=== PATIENT | female | born 1970 | race Caucasian/White ===

== ENCOUNTER 2017-03-12 12:14 | Emergency (ER) | payer MEDICAID ==
[~2017-03-12] VITALS: Ht 149.9 cm; Wt 72.7 kg
[2017-03-12 12:27] VITALS: BP 136/83; PULSE 81; RESP 18; O2SAT 99
--- NOTE | 2017-03-12 14:03 | ED.REPORT ---
HPI-Extremity Problem Lower Date of Service Mar 12, 2017 ED Provider: Corey Stewart PA-C to 46-year-old female. Emergency department with chief complaint of bilateral leg pain. Patient reports a one-month history of pain shooting "up the backs of my legs." Reports the pain is debilitating to the point where she is unable to step up onto a curb. She reports several falls a day. Patient reports being evaluated at [facility] as well as being followed at the [facility], "but they are not helping me." She can recall no injury. Denies back pain, abdominal pain, vomiting, hematochezia, hematuria, dysuria. She reports episodes of fecal incontinence, which she describes as occurring after periods of intense pain. Denies numbness between her legs, urinary retention. Denies fever, DM, HIV, organ transplant, immunosuppression, recent surgery, recent infection, history of back surgery, surgical implants and IV drug use. History of severe psoriasis. She reports treatment with prednisone was helpful, which she received last week. Denies using other medications. Nursing Notes Stated Complaint: BILATERAL LEG PAIN/FEET NUMB Chief Complaint: Extremity Trauma Nursing Notes Reviewed: Yes Allergies: Coded Allergies: codeine (Verified Allergy, Unknown, 03/12/17) Scheduled PRN Hydrocodone-Acetaminophen 5-325 mg (Hydrocodone-Acetaminophen 5-325 mg) 1 Each Tablet 1-2 TABLET PO QID PRN PRN For Pain General Time Seen by MD: 13:41 Chief Complaint Other (bilateral leg pain) Past Medical History Past Medical History Psoriasis Denies: Diabetes mellitus, HIV Review of Systems Review of Systems Note: Negative unless stated otherwise in history of present illness Physical Exam General: Well appearing, well developed, well nourished, no acute distress. Head: Atraumatic, normocephalic. Eyes: No scleral icterus or injection. No discharge. Vision grossly intact. ENT: Voice clear, hearing grossly intact. Respiratory: No respiratory distress, no increased work of breathing. Speaks in complete sentences. Skin: Warm and dry. Rectal exam: Normal tone, negative masses Back: Normal to inspection, nontender. Neurological: Patient has difficulty standing, and strength examination is extremely limited. It is unclear if this is due to pain or limited strength. sensation is intact in distal extremities. Patellar and Achilles deep tendon reflexes 2+ and symmetrical. Psychological: alert and oriented. Speech appropriate, linear and logical. Behavior somewhat dramatic, tearful. Initial Vital Signs Vital Signs (First) Date Time Temp Pulse Resp B/P Pulse Ox O2 Delivery O2 Flow Rate FiO2 03/12/17 12:27 37.0 81 18 136/83 99 Room Air Normal Interpretation & Diagnostics Interpretation & Diagnostics: PROCEDURE: MRI LUMBAR SPINE WITH AND WITHOUT CONTRAST ([id number]) INDICATIONS: leg pain, weakness IMPRESSION: 1. Early degenerative changes most prominent at L4-5, demonstrating disc bulge with severe spinal stenosis. In addition, there is severe right foraminal narrowing where it mild nerve reflecting. Spinal stenosis is present secondary to disc bulge with contributing effect of facet and ligamentum flavum arthropathy. Foraminal narrowing is present secondary to facet arthropathy with contributing effect of anterolisthesis. Re-Eval/Medical Decision Med Decision/Clinical Course 38-year-old female with a one-month history of bilateral shooting pains, numbness in her feet complaining of increasing weakness, pain. Reports urinary and fecal incontinence, possibly associated with pain. Denies saddle anesthesia , urinary retention. Denies history of back surgery, IV drug use, fever. Physical examination reveals normal reflexes, sensation but limited strength and mobility. It is unclear if this is due to pain, lack of effort. Patient is unable to stand without severe pain, cannot straight leg raise, strength is significantly reduced in her extremities. Exam is normal. Found this a challenging physical, this is difficult to determine how much is participation based on how much is genuine. I discussed the case with Dr. Taylor, who met with and examined the patient. He suggests MRI lumbar spine with and without contrast. This shows severe L4 5 stenosis, is reassuring against abscess, hematoma, fracture. Discussed findings with spine surgeon, who reviewed MRI personally and feels that stenosis does not rise to the level of cauda equina syndrome and this is nonemergent condition. He does feel she will need surgery. Advises follow-up in office, pain medication. I discussed these reveals a patient who was glad to have a diagnosis and felt heard. Provided with primary care follow-up instructions, spine surgery follow-up instructions and emergency return precautions. Provided a supply of [place]. The patient verbalizes understanding of and consent to the plan. Consultation #1: Call Returned at: 16:33 Note: Discussed the case with a provider at [facility], the PCP listed on her ANGELA report. She reports that the patient has not been seen there since June 2016. Consultation #2: Referral / Consult Name: Horace Muñoz MD Call Returned at: 18:17 Note: Discussed the case with Dr. Muñoz, who reviewed the imaging. He does not feel that the stenosis rises to the level of cauda equina syndrome. He does not believe this is an emergent condition, but does believe she will need spine surgery. He recommends short-term pain medication with ibuprofen and hydrocodone/APAP. Patient is invited to contact his office tomorrow to arrange to be seen. He also advises the patient should contact her primary care provider to arrange ongoing pain medication prior to surgery. Discharge & Departure Impression: Primary Impression: Spinal stenosis at L4-L5 level Additional Impression: Leg pain, bilateral Disposition: Home Discharge Condition All VS Reviewed: Yes Condition: Stable Patient Instructions: Lumbar Spinal Stenosis (ED) Additional Instructions: Evaluation for leg pain in the emergency department includes interview, physical examination, MRI and consultation with the spine surgeon. So reassuring that this is unlikely to be an immediately dangerous condition, however Dr. Muñoz does believe that you have severe spinal stenosis which will likely require surgery. I will provide you with a referral to see Dr. Muñoz. Please contact his office tomorrow to arrange to be seen. I also suggest that you follow up with your primary care provider tomorrow to arrange ongoing pain medication. We will not refill your pain medications here in the emergency department. The pain is best treated with 600 mg of ibuprofen (Advil, Motrin) every 6 hours. I have written a prescription for a small amount of hydrocodone/ acetaminophen 5/325 mg which can be added to the ibuprofen to treat more severe pain. Do not drink alcohol or operate a vehicle within 4 hours of taking this medication. Return to the emergency department with any new or worsening symptoms including numbness between her legs, loss of bowel function or an inability to urinate Referrals: Awa Salgado MD (PCP) Horace Muñoz MD OTHER,PHYSICIAN [facility]. EDSupervising Provider for APC: Froilan Taylor MD Attending Statement Attending attestation: I saw this patient in conjunction with Corey Stewart PA-C. I agree with the workup, evaluation, treatment and disposition. Froilan Taylor MD copies to: Awa Salgado MD; Horace Muñoz MD, Seth PA-C Mar 12, 2017 14:03 Froilan Taylor MD Mar 13, 2017 17:44
[2017-03-12 16:56] VITALS: BP 115/64; PULSE 72; O2SAT 99
--- NOTE | 2017-03-12 16:59 | DRSVH ---
PROCEDURE: MRI LUMBAR SPINE WITH AND WITHOUT CONTRAST ([id number]) INDICATIONS: leg pain, weakness TECHNIQUE: Noncontrast sagittal T1 spin echo and T2 fast spin echo, sagittal STIR, axial T1 and T2 fast spin ech o through the lumbar spine. In cases with scoliosis, additional coronal T2 fast spin echo may be per formed. After the administration of contrast, sagittal and axial T1 spin echo with fat saturation th rough the lumbar spine. COMPARISON: None. FINDINGS: Image quality: Excellent. Alignment and curvature: There is trace anterolisthesis of L4 on L5, trace retrolisthesis of L3 on L4 . Marrow: Marrow is of normal overall signal. No acute vertebral body compression fractures. No susp icious marrow enhancement. Spinal cord: Conus medullaris terminates at the L1 level. Visualized spinal cord demonstrates nuno l signal, without suspicious enhancement. Paraspinous soft tissues: No paravertebral masses or abnormal enhancement. Moderate desiccation is present from L3-4 through L5-S1 L1-L2: No disc bulge, spinal stenosis or foraminal narrowing. L2-L3: Minimal disc bulge without spinal stenosis or foraminal narrowing. Mild facet and ligamentum f lavum hypertrophy. L3-L4: Mild disc bulge with minimal spinal stenosis. Minimal to mild bilateral foraminal narrowing wi th facet and ligament flavum hypertrophy. Mild epidural lipomatosis. L4-L5: Prominent broad-based disc bulge with what appears to be a left foraminal component. Motion is present on axial images at this level, somewhat limiting evaluation. There is severe spinal stenosis with severe right and mild to moderate left foraminal narrowing. Mild flattening is noted on the rig ht. Facets and ligamenta flava hypertrophy are present. Fluid are present within the facet joints justo aterally most consistent with degenerative inflammatory change. L5-S1: Mild disc bulge without spinal stenosis. Small right lateral/foraminal component is present. T here is severe right and moderate left foraminal narrowing with flattening on the right. Facet hypert rophy is present. IMPRESSION: 1. Early degenerative changes most prominent at L4-5, demonstrating disc bulge with severe spinal alonzo nosis. In addition, there is severe right foraminal narrowing where it mild nerve reflecting. Spinal stenosis is present secondary to disc bulge with contributing effect of facet and ligamentum flavum a rthropathy. Foraminal narrowing is present secondary to facet arthropathy with contributing effect of anterolisthesis. Dictated by: Rosanna Landeros M.D. on 03/12/2017 at 16:52 Approved by: Rosanna Landeros M.D. on 03/12/2017 at 16:56
[2017-03-12] MEDS ORDERED: HYDR-4003 PO (19:29)
== END 2017-03-12 19:27 | disposition home or self-care (01) ==
LOC: SED 12:14
DX: M48.06 Spinal stenosis, lumbar region (principal); M79.604 Pain in right leg; M79.605 Pain in left leg; R29.6 Repeated falls; R15.9 Full incontinence of feces; Z88.5 Allergy status to narcotic agent
CPT/HCPCS: 72158; 96372; 99284; A9585; J1885

== ENCOUNTER 2017-04-12 11:38 | Emergency (ER) | payer MEDICAID ==
[~2017-04-12] VITALS: Ht 149.9 cm; Wt 75.0 kg
[~2017-04-12 11:38] MED LIST: HYDR-4003 PO
[2017-04-12 12:06] VITALS: BP 118/62; PULSE 72; RESP 14; O2SAT 99
--- NOTE | 2017-04-12 12:57 | ED.REPORT ---
HPI-Back Pain 40 and Over Date of Service Apr 12, 2017 ED Provider: Ryanne Bo History of Present Illness: right lower leg swelling, started on Saturday. has done elevation, given a vaishnavi wrap last time. alphonse is primary care. using dovanex for the psorasis complains of the pain. when asked what she uses for the pain, patient states nothing. When asked about using suboxone, patient states she has taken her doses today and is still in pain. Does not report radiating pain. Pain is point tender at medial malleolus. No swelling noted. patient reports the pain has been ongoing and she does not get enough pain medications Nursing Notes Chief Complaint: Extremity Trauma Nursing Notes Reviewed: Yes (using dovanex for psorasis) Allergies: Coded Allergies: codeine (Verified Allergy, Unknown, 03/12/17) Scheduled PRN Hydrocodone-Acetaminophen 5-325 mg (Hydrocodone-Acetaminophen 5-325 mg) 1 Each Tablet 1-2 TABLET PO QID PRN PRN For Pain General Time Seen by MD: 12:49 Chief Complaint Other (right leg pain) Hx Obtained From: Patient Sudden in Onset?: No Past Medical History Past Medical History Notes: sees drew for ARTHRITIS Past Medical History Psoriasis Smoking History Current Every Day Smoker (1 cig a day for 10 years) Social History Alcohol Use: Denies alcohol use Drug Use: THC Review of Systems Basic Review of Systems Eyes: Vision NL, No discharge Skin: No bruising, No rash, No itch Psychiatric: Normal thought content Physical Exam Initial Vital Signs Vital Signs (First) Date Time Temp Pulse Resp B/P Pulse Ox O2 Delivery O2 Flow Rate FiO2 04/12/17 12:06 36.6 72 14 118/62 99 Room Air Initial VS: Reviewed, Vital signs normal Head / Eyes: Atraumatic, Normocephalic, PERRL ENT: Mucous membranes moist, Conjunctiva normal, No scleral icterus Neck: Supple, Non-tender, Full range of motion Lymphatic: No lymphadenopathy Extremities: Vascular intact, Neuro intact, No swelling, No tenderness Skin: Warm, Dry, No cyanosis Psychiatric: Mood/affect normal, Behavior normal, Normal thought content General/Constitutional: Awake, Alert, No acute distress, Well appearing, Well developed, Well hydrated, Well nourished, Cooperative, Not toxic appearing Respiratory / Chest: Atraumatic, Breath sounds NL, Breath sounds = bilat, No respiratory distress Cardiovascular: Heart rate NL, Regular rhythm, Heart sounds NL, No gallop Abdomen: Atraumatic, Soft, Non-tender Neurologic: Oriented X3, Speech NL, No motor deficits, No sensory deficits, Gait NL lower extremities show plaque psorasis in various stages of healing. no sign of infection no increased warmth. area where patient points to does not show any swelling. Has full range of motion of ankle Rash / Lesion Notes: plaques psorasis in many locations 04/12/2017 Interpretation & Diagnostics Interpretation & Diagnostics: ROCEDURE: US VEINOUS LEG DUPLEX UNILATERAL, RIGHT INDICATIONS: pain and swelling rt TECHNIQUE: Real-time imaging, as well as color and pulse Doppler interrogation, were performed of the lower extremity deep veins from the inguinal ligament to the popliteal fossa. COMPARISON: None. FINDINGS: The deep veins are normally compressible, and free of intraluminal thrombus. Color and pulse Doppler demonstrate normal phasic intraluminal flow. There is normal augmentation response to distal compression maneuver. IMPRESSION: 1. No evidence of deep venous thrombosis in the right lower extremity. Dictated by: Terrance Mcgee M.D. on 04/12/2017 at 13:59 Approved by: Terrance Mcgee M.D. on 04/12/2017 at 13:59 Lab Results Interpretation Result Diagram: 04/12/17 1344 04/12/17 1344 Test 04/12/17 13:44 04/12/17 14:03 White Blood Count 3.8th/mm3 (3.8-10.1) Red Blood Count 3.87mil/mm3 (3.90-5.20) Hemoglobin 11.1g/dL (12.0-15.6) Hematocrit 33.5% (35.0-46.0) Mean Corpuscular Volume 86.6fL (81-100) Mean Corpuscular Hemoglobin 28.7pg (27.0-35.0) Mean Corpuscular Hemoglobin Concent 33.1% (32.0-37.0) Red Cell Distribution Width 14.3% (12.3-15.4) Platelet Count 92bil/L (150-400) Neutrophils (%) (Auto) 49.8% (40-74) Lymphocytes (%) (Auto) 33.0% (14-46) Monocytes (%) (Auto) 12.9% (4-12) Eosinophils (%) (Auto) 3.7% (0-5) Basophils (%) (Auto) 0.3% (0-3) Erythrocyte Sedimentation Rate 29mm/hr (0-32) Sodium Level 142mEq/L (134-144) Potassium Level 4.3mEq/L (3.5-5.2) Chloride Level 104mEq/L (97-108) Carbon Dioxide Level 24mmol/L (18-29) Blood Urea Nitrogen 10mg/dL (6-24) Creatinine 0.59mg/dL (0.57-1.00) Estimat Glomerular Filtration Rate 156mL/min (>59) Glucose Level 102mg/dL (60-99) Calcium Level 9.0mg/dL (8.5-10.1) Total Bilirubin 0.5mg/dL (0.0-1.2) Aspartate Amino Transf (AST/SGOT) 34U/L (0-50) Alanine Aminotransferase (ALT/SGPT) 19U/L (0-32) Alkaline Phosphatase 180U/L (25-150) C-Reactive Protein 1.1mg/dL (0.0-0.5) Total Protein 6.8g/dL (6.4-8.4) Albumin 3.4g/dL (3.4-5.0) Hold Montiel Top Tube Received (Received) X-Ray Interpretation Xray Interpretation: PROCEDURE: X-RAY RIGHT ANKLE, MINIMUM THREE VIEWS ([id number]) INDICATIONS: pain TECHNIQUE: 3 views of the ankle were acquired. COMPARISON: None. FINDINGS: Bones: No fractures or dislocations. Ankle mortise is normally aligned. No suspicious bony lesions. Soft tissues: No tibiotalar joint effusion. Achilles tendon appears normal. IMPRESSION: No visualized acute fracture or dislocation. However, if clinical concern and/or pain persist, short interval imaging followup in 7-10 days is recommended, as occult injury cannot be definitively excluded. Dictated by: Rosanna Landeros M.D. on 04/12/2017 at 12:25 Approved by: Rosanna Landeros M.D. on 04/12/2017 at 12:26 Re-Eval/Medical Decision Med Decision/Clinical Course 46 year old female presents for evualation of right lower leg pain. Patient is reporting swelling but exam does not indicate any swelling. Patient does not disclose she is on the suboxone program. Review of the [employer] indicates she has been on the suboxone for a year with [facility] with 3 prescritions for hydrocodone with suboxone provided the very next day. X-ray does not show any bony damage. US is negative for any clot. Patient is encouraged to keep the appointments she has scheduled. Discharge & Departure Impression: Primary Impression: Right leg pain Disposition: Home Patient Instructions: Psoriasis (ED) Additional Instructions: The x-ray is negative, it does not show any sign of bony damage. The ultrasound is negative , does not show any sign of a blood clot or abscess formation. Your labs do not show any sign of infection. You have an appointment with the spinal surgery on 04/29/2017. Please keep the appointment. Continue with your suboxone. Can use ketorolac 10 mg up to 4 times a day for pain. Also a small amount of lido gel to the site of pain will be helpful. Referrals: Awa Salgado MD (PCP) EDSupervising Provider for APC: Gordo Munoz DO copies to: Awa Salgado MD, Sue ARNP Apr 12, 2017 12:57
--- NOTE | 2017-04-12 13:00 | ED.REPORT ---
HPI-Back Pain 40 and Over Date of Service Apr 12, 2017 ED Provider: Nursing Notes Stated Complaint: RT LEG AND FOOT PAIN Chief Complaint: Extremity Trauma Allergies: Coded Allergies: codeine (Verified Allergy, Unknown, 03/12/17) Scheduled PRN Hydrocodone-Acetaminophen 5-325 mg (Hydrocodone-Acetaminophen 5-325 mg) 1 Each Tablet 1-2 TABLET PO QID PRN PRN For Pain General Time Seen by MD: 12:49 Past Medical History Past Medical History Psoriasis Physical Exam Initial Vital Signs Vital Signs (First) Date Time Temp Pulse Resp B/P Pulse Ox O2 Delivery O2 Flow Rate FiO2 04/12/17 12:06 36.6 72 14 118/62 99 Room Air Discharge & Departure Referrals: Awa Salgado MD (PCP) Ryanne Bo Apr 12, 2017 13:00
--- NOTE | 2017-04-12 13:27 | DRSVH ---
PROCEDURE: X-RAY RIGHT ANKLE, MINIMUM THREE VIEWS ([id number]) INDICATIONS: pain TECHNIQUE: 3 views of the ankle were acquired. COMPARISON: None. FINDINGS: Bones: No fractures or dislocations. Ankle mortise is normally aligned. No suspicious bony lesions . Soft tissues: No tibiotalar joint effusion. Achilles tendon appears normal. IMPRESSION: No visualized acute fracture or dislocation. However, if clinical concern and/or pain pe rsist, short interval imaging followup in 7-10 days is recommended, as occult injury cannot be defini tively excluded. Dictated by: Rosanna Landeros M.D. on 04/12/2017 at 12:25 Approved by: Rosanna Landeros M.D. on 04/12/2017 at 12:26
[2017-04-12 13:59] LABS: BASOPHILS % (AUTO) 0.3 % (0-3); EOSINOPHILS % (AUTO) 3.7 % (0-5); MONOCYTES % (AUTO) 12.9 % (4-12); Mean Corpuscular Hemoglobin 28.7 pg (27.0-35.0); Mean Corpuscular Volume 86.6 fL (81-100); NEUTROPHILS % (AUTO) 49.8 % (40-74); Platelet Count 92 bil/L (150-400)
--- NOTE | 2017-04-12 14:00 | DRSVH ---
PROCEDURE: US VEINOUS LEG DUPLEX UNILATERAL, RIGHT INDICATIONS: pain and swelling rt TECHNIQUE: Real-time imaging, as well as color and pulse Doppler interrogation, were performed of the lower extr emity deep veins from the inguinal ligament to the popliteal fossa. COMPARISON: None. FINDINGS: The deep veins are normally compressible, and free of intraluminal thrombus. Color and pu lse Doppler demonstrate normal phasic intraluminal flow. There is normal augmentation response to di stal compression maneuver. IMPRESSION: 1. No evidence of deep venous thrombosis in the right lower extremity. Dictated by: Terrance Mcgee M.D. on 04/12/2017 at 13:59 Approved by: Terrance Mcgee M.D. on 04/12/2017 at 13:59
[2017-04-12 14:24] LABS: ERYTHROCYTE SEDIMENTATION RATE 29 mm/hr (0-32)
== END 2017-04-12 15:51 | disposition home or self-care (01) ==
LOC: SED 11:38
DX: M79.661 Pain in right lower leg (principal); L40.9 Psoriasis, unspecified; F17.200 Nicotine dependence, unspecified, uncomplicated; Z88.5 Allergy status to narcotic agent
CPT/HCPCS: 36415; 73610; 80053; 85025; 85651; 86140; 93971; 96372; 99284; J1885

== ENCOUNTER 2017-04-28 20:38 | Emergency (ER) | payer MEDICAID ==
[~2017-04-28] VITALS: Ht 149.9 cm; Wt 74.5 kg
[2017-04-28 21:11] VITALS: BP 120/75; PULSE 88; RESP 16; O2SAT 99
--- NOTE | 2017-04-28 21:36 | ED.REPORT ---
HPI-General Illness Date of Service Apr 28, 2017 ED Provider: Zion Benoit MD Pt is a 46 year old female with a history of psoriasis who presents to the ED complaining of worsening psoriasis. She c/o associated extremity pain, itching, and difficulty walking secondary to the psoriasis. She does not report any other symptoms. The pt reports that she is concerned of infection. Nursing Notes Stated Complaint: CRACKING OF PSORIASIS Chief Complaint: Skin Rash/Abscess Nursing Notes Reviewed: Yes Allergies: Coded Allergies: codeine (Verified Allergy, Unknown, 04/28/17) Scheduled Ceramides 1,3,6-11 (Cerave) 453 Gm Cream..g. 453 GM TP BID Fluocinonide 0.05% Cream (Fluocinonide 0.05% Cream) 15 Gm Cream..g. 1 APPLIC TOPICAL BID Prednisone (PredniSONE) 20 Mg Tablet 60 MG PO DAILY Scheduled PRN Hydrocodone-Acetaminophen 5-325 mg (Hydrocodone-Acetaminophen 5-325 mg) 1 Each Tablet 1-2 TABLET PO QID PRN PRN For Pain General Time Seen by MD: 21:36 Chief Complaint Other (worsening psoriasis) Hx Obtained From: Patient Arrived By: Walk-in Sudden in Onset?: No Onset Occurred: Onset unknown Symptom Duration: Since onset Location: : Elbow left: Elbow right: Leg left: Leg right Quality: Itching, Painful Radiation: : Does not radiate Severity: Current: Moderate Severity: Maximum: Moderate Recent Healthcare: Recent doctor visit Similar Sx Previous: Yes Past Medical History Past Medical History Notes: sees marissak for ARTHRITIS Past Medical History Psoriasis Past Surgical History Denies Smoking History Current Every Day Smoker Social History Alcohol Use: Denies alcohol use Drug Use: THC Ambulatory Status Independent Review of Systems + Difficulty walking + Psoriasis Full Review of Systems Constitutional: Denies: Fever Musculoskeletal: Reports: Extremity pain Skin: Reports Itching Complete sys rev & neg: except as marked. Physical Exam Vital Signs Vital Signs Date Time Temp Pulse Resp B/P Pulse Ox O2 Delivery O2 Flow Rate FiO2 04/28/17 22:30 36.5 88 16 120/75 99 Room Air 04/28/17 21:11 36.5 88 16 120/75 99 Room Air Initial VS: Reviewed Head / Eyes: Atraumatic, Normocephalic Neck: Supple, Full range of motion Respiratory: Breath sounds normal, Clear to auscultation, No respiratory distress Cardiovascular: Regular rate & rhythm, Heart sounds normal, Intact distal pulses Abdomen / GI: Soft, Non-tender Extremities: Vascular intact, Neuro intact Neurologic: Alert, Oriented, Nonfocal Psychiatric: Mood/affect normal, Behavior normal General/Constitutional: Awake, Alert, No acute distress ENT: Airway patent Horrible dentition Widespread psoriatic plaques all over her body that are almost confluent. Skin cracking bilaterally. Her face is relatively uninvolved. Re-Eval/Medical Decision Med Decision/Clinical Course 38-year-old widespread psoriasis not currently on coordinated treatment. Begun with Lidex cream, brief oral steroid course, and directed to follow up with dermatology. Source of Hx: Old records Time of Eval: 21:40 Re-Evaluation/Progress Note: Pt rechecked. Informed pt of plan for discharge. Pt understands and agrees with plan for discharge. F/U instructions and RTER warnings given. All questions addressed. Counseled Regarding: Diagnosis, Need for follow-up, When/why to return to ED Discharge & Departure Primary Impression: Psoriasis Disposition: Home Discharge Condition All VS Reviewed: Yes Condition: Stable Patient Instructions: Psoriasis (ED) Additional Instructions: Call your doctor Saturday for follow-up. This is a dangerous skin condition, and needs management by a specialist. You need a dermatology appointment as soon as possible. Begin prednisone three tabs daily for three days. Begin Lidex cream applied to all affected areas except on her face, twice daily. Follow that with CeraVe cream to all the areas. Return if you develop fever or other new symptoms of concern. Cigarette smoking generally make psoriasis worse. It would be best if you could quit. Referrals: Joshua Ochoa MD (PCP) Lindaibtristian Attestation Portions of this note were transcribed by Ava Jim. I, Dr. Benoit personally performed the history, physical exam and medical decision-making; I reviewed and confirmed the accuracy of the information in the transcribed note. Signed by: Michael Murray, 04/28/17. copies to: Joshua Ochoa MD, Christopher W MD Apr 28, 2017 21:36 Ava Fish Apr 28, 2017 21:47
[2017-04-28] MEDS ORDERED: [UNRECOGNIZED DRUG - OTHER] TOPICAL ONE (21:45)
[2017-04-28] MEDS ORDERED: FluocinoNIDE Acet 0.05% 30 Gm Cream TOPICAL ONE (21:50)
[2017-04-28] MEDS ORDERED: PRE20 PO (21:50)
[2017-04-28] MEDS ORDERED: CERA453C2 TP (21:52)
[2017-04-28] MEDS ORDERED: FLUO15CR TOPICAL (21:52)
[2017-04-28] MEDS ORDERED: FluocinoNIDE Acet 0.05% 30 Gm Cream TOPICAL SCH (22:00)
[2017-04-28] MEDS ORDERED: predniSONE 20 mg Tablet PO ONE (22:10)
[2017-04-28] MEDS: predniSONE 20 mg Tablet PO SCH ×2 (22:24→22:29)
[2017-04-28 22:30] VITALS: BP 120/75; PULSE 88; RESP 16; O2SAT 99
[2017-04-29] MEDS ORDERED: FluocinoNIDE Acet 0.05% 30 Gm Cream TOPICAL SCH (08:30)
== END 2017-04-28 22:32 | disposition home or self-care (01) ==
LOC: SED 20:38
DX: L40.9 Psoriasis, unspecified (principal); F17.200 Nicotine dependence, unspecified, uncomplicated; Z88.5 Allergy status to narcotic agent
CPT/HCPCS: 99283; J7311